=== PATIENT | male | born 1975 | race Caucasian/White ===

== ENCOUNTER → 2019-01-29 | Outpatient (CLI) | payer BC ==
--- NOTE | 2019-01-29 10:13 | Diagnostic Imaging Report ---
Left shoulder at 932. Indication: Shoulder pain. Four views were obtained. There are no prior studies available for comparison. There is no fracture, dislocation or acute bony abnormality evident. 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 The soft tissues are unremarkable. Impression: 1. There is no evidence for an acute bony abnormality. 2. If there is clinical concern regarding an injury to the labrum or rotator cuff, then MRI should be considered for further study. Dictated by: Dictated on workstation # [id number]
== END ==
LOC: RAD FS 09:25
PROVIDERS: ATTEND Nurse Practitioner
DX: M25.512 Pain in left shoulder (principal)
CPT/HCPCS: 73030

== ENCOUNTER → 2019-06-03 | Outpatient (CLI) | payer OTHER ==
--- NOTE | 2019-06-03 15:04 | Diagnostic Imaging Report ---
INDICATION: Left shoulder pain. TECHNIQUE: AP, oblique, and transscapular views of the left shoulder were obtained. FINDINGS: No fracture or dislocation is seen. There is no acute bony abnormality. There is no significant degenerative change of the glenohumeral joint or AC joint. IMPRESSION: Negative left shoulder. No change from 01/29/2019. Dictated by: Dictated on workstation # [id number]
== END ==
LOC: RAD FS 12:39
PROVIDERS: ATTEND Nurse Practitioner Family
DX: M25.512 Pain in left shoulder (principal); M54.6 Pain in thoracic spine
CPT/HCPCS: 73030

== ENCOUNTER → 2020-03-11 | Outpatient (CLI) | payer BC ==
--- NOTE | 2020-03-11 18:21 | Diagnostic Imaging Report ---
INDICATION: Fall one week ago with left shoulder pain. Time of exam: 2:48 PM Two views of the left shoulder were obtained. Glenohumeral and acromioclavicular alignment are normal. Acromiohumeral space is normal. No fracture or dislocation is seen. IMPRESSION: No acute abnormalities detected. Dictated by: Dictated on workstation # [id number]
== END ==
LOC: RAD FS 14:35
PROVIDERS: ATTEND Nurse Practitioner
DX: M25.512 Pain in left shoulder (principal); W19.XXXA Unspecified fall, initial encounter
CPT/HCPCS: 73030